=== PATIENT | female | born 1990 | race American Indian/Alaskan Native ===

== ENCOUNTER 2017-04-22 02:33 | Inpatient (IN) | payer MEDICAID ==
[2017-04-22] MEDS ORDERED: fentaNYL 100 MCG/2 ML SDV IVPUSH ONE (03:06)
[2017-04-22] MEDS ORDERED: Sodium Chloride 0.9% 1,000 ML IV ONE (03:08)
[2017-04-22] MEDS ORDERED: Lactated Ringers 1,000 ML IV ONE (03:08)
[2017-04-22] MEDS ORDERED: Naloxone 0.4 MG/ML SDV ONE (03:20)
[2017-04-22] MEDS ORDERED: Lidocaine 1% 50 ML MDV ONE (03:20)
[2017-04-22] MEDS ORDERED: Lidocaine 1% 50 ML MDV INJECT ONE (03:50)
[2017-04-22] MEDS ORDERED: Ibuprofen 800 MG Tab PO PRN (04:05)
[2017-04-22] MEDS ORDERED: Ibuprofen 800 MG Tab ONE (04:09)
--- NOTE | 2017-04-22 04:23 | PCM.LDHP ---
L&D History of Present Illness - General Date of Service: 04/22/17 (labor) Admit Problem/Dx: Admission Diagnosis/Problem Admission Diagnosis/Problem Source of Information: Patient History Limitations: Reports: No Limitations - History of Present Illness Introduction:: Alee was seen in clinic yesterday and had hypertension, lab negative and 24 hour urine was started was dilated to 2 cm. Alee slept last evening awake around 0030 and at 0045 her water broke. They stayed home until at 0330 when she presented to the hospital in active labor. She was dilated to 6 cm and wanted an epidural. Anesthesia and myself were called. We both arrived at 0320. She wanted to push at that time and was complete. No epidural was given and we proceed to delivery. Timing/Duration: Reports: minutes: (3) Location, : Reports: Abdomen Quality: Reports: Pressure Severity: Severe Pain Score: 10 Improves with: Reports: None Worsens with: Reports: None - Related Data Allergies/Adverse Reactions: Allergies Allergy/AdvReac Type Severity Reaction Status Date / Time No Known Allergies Allergy Verified 02/15/17 14:56 Home Medications: Home Meds Cephalexin 500 mg PO BID 02/15/17 [History] Past Medical History Cardiovascular History: Reports: Hypertension (diagnosed 04/21/17) [employer] History: Reports: - Infectious Disease History Infectious Disease History: Reports: Chicken Pox H&P Review of Systems - Review of Systems: Review Of Systems: See Below General: Reports: No Symptoms HEENT: Reports: No Symptoms Pulmonary: Reports: No Symptoms Cardiovascular: Reports: No Symptoms Gastrointestinal: Reports: No Symptoms Genitourinary: Reports: No Symptoms Musculoskeletal: Reports: No Symptoms Skin: Reports: No Symptoms Psychiatric: Reports: No Symptoms Neurological: Reports: No Symptoms Hematologic/Lymphatic: Reports: No Symptoms Immunologic: Reports: No Symptoms L&D Exam - Exam Exam: See Below - OB Specific Fundal Height In cm: 38 Contraction Intensity: Strong Movement: Active Heart Tones: Present Heart Tones per Min: 140 Heart Rate (FHR) Variability: Moderate (6-25 bmp) Presentation: Vertex Estimated Weight: 7-8 pounds - Coreas Score Coreas Score Cervix Position: Anterior Coreas Score Consistency: Soft Coreas Score Effacement: >80% Coreas Score Dilation: > 5 cm Coreas Score Infant's Station: -1 ,0 Coreas Score Total: 12 - Exam General: Alert, Oriented HEENT: PERRLA Neck: Supple Lungs: Normal Respiratory Effort Cardiovascular: Regular Rate, Regular Rhythm GI/Abdominal Exam: Soft Rectal Exam: Normal Exam Genitourinary: Cervical dilitation, Enlarged uterus Back Exam: Full Range of Motion Extremities: Normal Inspection, Normal Range of Motion, Non-Tender, Pedal Edema Skin: Warm Neurological: Cranial Nerves Intact Psychiatric: Alert, Normal Affect, Normal Mood - Patient Data Lab Results Last 24 hrs: Laboratory Results - last 24 hr 04/22/17 04/22/17 04/22/17 Range/Units 02:40 03:06 03:07 WBC 15.3 H (4.5-11.0) K/uL RBC 4.22 (3.30-5.50) M/uL Hgb 11.4 L (12.0-15.0) g/dL Hct 35.0 L (36.0-48.0) % MCV 83 (80-98) fL MCH 27 (27-31) pg MCHC 33 (32-36) % Plt Count 255 (150-400) K/uL Urine Color Yellow Urine Appearance Cloudy Urine pH 7.0 (4.5-8.0) Ur Specific [place] 1.015 (1.008-1.030) Urine Protein Negative (NEGATIVE) mg/dL Urine Glucose (UA) Normal (NEGATIVE) mg/dL Urine Ketones Negative (NEGATIVE) mg/dL Urine Occult Blood Large (NEGATIVE) Urine Nitrite Negative (NEGATIVE) Urine Bilirubin Negative (NEGATIVE) Urine Urobilinogen Normal (NORMAL) mg/dL Ur Leukocyte Esterase Moderate (NEGATIVE) Urine RBC 0-5 (0-5) Urine WBC 5-10 H (0-5) Ur Epithelial Cells Moderate Amorphous Sediment Few Urine Bacteria Few Urine Mucus Not seen Urine Opiates Screen Negative (NEGATIVE) Ur Oxycodone Screen Negative (NEGATIVE) Urine Methadone Screen Negative (NEGATIVE) Ur Propoxyphene Screen Negative (NEGATIVE) Ur Barbiturates Screen Negative (NEGATIVE) Ur Tricyclics Screen Negative (NEGATIVE) Ur Phencyclidine Scrn Negative (NEGATIVE) Ur Amphetamine Screen Negative (NEGATIVE) U Methamphetamines Scrn Negative (NEGATIVE) Urine MDMA Screen Negative (NEGATIVE) U Benzodiazepines Scrn Negative (NEGATIVE) U Cocaine Metab Screen Negative (NEGATIVE) U Marijuana (THC) Screen Negative (NEGATIVE) Result Diagrams: 04/22/17 03:06 - Problem List (1) SNOMED Code(s): 17369443 ICD Code: Z34.90 - ENCNTR FOR SUPRVSN OF NORMAL , UNSP, UNSP TRIMESTER Status: Acute Current Visit: Yes Qualifiers: Weeks of gestation: 38 weeks Qualified Code(s): Z3A.38 - 38 weeks gestation of (2) PIH ( induced hypertension) SNOMED Code(s): 54163148 ICD Code: O13.9 - GESTATIONAL HTN W/O SIGNIFICANT PROTEINURIA, UNSP TRIMESTER Status: Acute Current Visit: No (3) Delayed delivery after SROM (spontaneous rupture of membranes) SNOMED Code(s): 70201227 ICD Code: O42.90 - LINDA ROM, 7TH0 BETW RUPT & ONST LABR, UNSP WEEKS OF GEST Status: Acute Current Visit: No (4) Active labor SNOMED Code(s): 67041692 ICD Code: [id number] - Status: Acute Current Visit: No Problem List Initiated/Reviewed/Updated: Yes Orders Last 24hrs: Active Orders 24 hr Category Date Time Status OB Check [OM.PC] Click to Edit Care 04/22/17 02:40 Ordered Ibuprofen [Motrin] Med 04/22/17 04:05 Active 800 mg PO Q8H PRN Oxytocin/Normal Saline [Pitocin in NS 20 Units/1,000 ML Med 04/22/17 03:15 Active ] 20 unit in 1,000 ml IV TITRATE Epidural Catheter Management [OM.PC] Routine Oth 04/22/17 03:08 Ordered Medication Orders Oxytocin/Sodium Chloride (Pitocin In Ns 20 Units/1,000 Ml) 20 unit in 1,000 mls @ 999 mls/hr IV TITRATE ALEKSANDER PRN Reason: Protocol Last Admin: 04/22/17 03:53 Dose: 999 mls/hr, 999 mls/hr Ibuprofen (Motrin) 800 mg PO Q8H PRN PRN Reason: Pain Assessment/Plan Comment:: 03/22/18 A 27 year old presented in active labor after SROM at home at 0045 with clear fluid. Progressed quickly and plan for delivery Epidural requested Labs: ABO A pos GBS negative HIV neg Rubella immune
[2017-04-22] MEDS ORDERED: Sodium Chloride 0.9% 10 ML Syringe FLUSH PRN (04:29)
[2017-04-22] MEDS ORDERED: Benzocaine 20% Top Spray 56 GM Bottle TOP PRN (04:34)
[2017-04-22] MEDS ORDERED: Acetaminophen 325 MG Tab PO PRN (04:34)
[2017-04-22] MEDS ORDERED: Witch Hazel Medicated Pads 100/Jar TOP PRN (04:34)
[2017-04-22] MEDS ORDERED: Lanolin 100% Cream 40 GM Tube TOP PRN (04:34)
--- NOTE | 2017-04-22 04:50 | PCM.DEL ---
L & D Note - General Info Date of Service: 04/22/17 (delivery) Mother's Due Date: 05/02/17 - Delivery Note Labor: Spontaneous Delivery Outcome: Livebirth Infant Delivery Method: Spontaneous Vaginal Delivery-Single Infant Delivery Mode: Spontaneous Presentation: Left Occiput Anterior (GAGE) Nuchal Cord: Present Anesthesia Type: Local Anesthetic: Lidocaine (Xylocaine) 1% Plain Local Anesthetic Volume: 3cc Amniotic Fluid Description: Clear Episiotomy Type: None Laceration: 1st Degree, Perineal Suture type: Chromic Suture size: 3-0 Placenta: Intact, Spontaneous Cord: 3 Vessels Estimated Blood Loss: 100 Resuscitation Needed: No [place]: Bulb Syringe, Stimulated, Warmed, [place] Used Provider: Perlita Mello Score 1 min: 8 Score 5 min: 9 Second Stage Interventions: Reports: Second Nurse Reviewed Heart Tones, Encouragement Given, Pushing Effectively, Pushing, Stirrups/Leg Supports Delivery Comments (Free Text/Narrative):: 04/22/17 This 27 year old G2 Now P2 who is 38 3/7 weeks delivered via at 0340 in [place] a viable male infant. Nuchal body cord three vessel cord. Baby was delivered on to mother's abdomen where he was dried and stimulated. he cried spontaneously. Agpar 8,9. Placenta was expressed spontaneously intact. A small perineal flap laceration on the right side was found and repaired with 3 -0 vircyl. One % lidocaine was used as a local agent. No other lacerations were found of the cervix, rectum, or vagina. EBL 100cc Mother and baby to post and nursery in stable condition. weight 7-11 first stage 3134-2078 second stage 4165-6051 third stage 1314-7074 - General Info Date of Service: 04/22/17 Admission Dx/Problem (Free Text): Admission Diagnosis/Problem Admission Diagnosis/Problem Functional Status: Reports: Pain Controlled - Review of Systems General: Reports: No Symptoms HEENT: Reports: No Symptoms Pulmonary: Reports: No Symptoms Cardiovascular: Reports: No Symptoms Gastrointestinal: Reports: No Symptoms Genitourinary: Reports: No Symptoms Musculoskeletal: Reports: No Symptoms Skin: Reports: No Symptoms Neurological: Reports: No Symptoms Psychiatric: Reports: No Symptoms - Patient Data Vitals - Most Recent: Last Vital Signs Temp Pulse 75 04/22/17 04:15 Resp 20 04/22/17 04:15 BP 147/91 H 04/22/17 04:15 Pulse Ox Weight - Most Recent: 234 lb Lab Results Last 24 Hours: Laboratory Results - last 24 hr 04/22/17 04/22/17 04/22/17 Range/Units 02:40 03:06 03:07 WBC 15.3 H (4.5-11.0) K/uL RBC 4.22 (3.30-5.50) M/uL Hgb 11.4 L (12.0-15.0) g/dL Hct 35.0 L (36.0-48.0) % MCV 83 (80-98) fL MCH 27 (27-31) pg MCHC 33 (32-36) % Plt Count 255 (150-400) K/uL Urine Color Yellow Urine Appearance Cloudy Urine pH 7.0 (4.5-8.0) Ur Specific [place] 1.015 (1.008-1.030) Urine Protein Negative (NEGATIVE) mg/dL Urine Glucose (UA) Normal (NEGATIVE) mg/dL Urine Ketones Negative (NEGATIVE) mg/dL Urine Occult Blood Large (NEGATIVE) Urine Nitrite Negative (NEGATIVE) Urine Bilirubin Negative (NEGATIVE) Urine Urobilinogen Normal (NORMAL) mg/dL Ur Leukocyte Esterase Moderate (NEGATIVE) Urine RBC 0-5 (0-5) Urine WBC 5-10 H (0-5) Ur Epithelial Cells Moderate Amorphous Sediment Few Urine Bacteria Few Urine Mucus Not seen Urine Opiates Screen Negative (NEGATIVE) Ur Oxycodone Screen Negative (NEGATIVE) Urine Methadone Screen Negative (NEGATIVE) Ur Propoxyphene Screen Negative (NEGATIVE) Ur Barbiturates Screen Negative (NEGATIVE) Ur Tricyclics Screen Negative (NEGATIVE) Ur Phencyclidine Scrn Negative (NEGATIVE) Ur Amphetamine Screen Negative (NEGATIVE) U Methamphetamines Scrn Negative (NEGATIVE) Urine MDMA Screen Negative (NEGATIVE) U Benzodiazepines Scrn Negative (NEGATIVE) U Cocaine Metab Screen Negative (NEGATIVE) U Marijuana (THC) Screen Negative (NEGATIVE) Med Orders - Current: Current Medications Acetaminophen (Tylenol) 650 mg PO Q4H PRN PRN Reason: mild pain or fever Benzocaine (Kpru-Y-Taqcmyr 20% [place]) 0 gm TOP Q4H PRN PRN Reason: Perineal Comfort Measure Emollient Ointment (Lansinoh Hpa) 1 gm TOP ASDIRECTED PRN PRN Reason: Sore Nipples Oxytocin/Sodium Chloride (Pitocin In Ns 20 Units/1,000 Ml) 20 unit in 1,000 mls @ 999 mls/hr IV TITRATE ALEKSANDER PRN Reason: Protocol Last Admin: 04/22/17 03:53 Dose: 999 mls/hr, 999 mls/hr Oxytocin/Sodium Chloride (Pitocin In Ns 20 Units/1,000 Ml) 20 unit in 1,000 mls @ 999 mls/hr IV ONETIME ONE PRN Reason: Protocol Stop: 04/22/17 05:33 Ibuprofen (Motrin) 800 mg PO Q8H PRN PRN Reason: Pain Sodium Chloride (Saline Flush) 10 ml FLUSH ASDIRECTED PRN PRN Reason: Keep Vein Open Witch Noreen (Tucks) 1 pad TOP ASDIRECTED PRN PRN Reason: Hemorrhoids Discontinued Medications Fentanyl (Sublimaze) 100 mcg IVPUSH ONETIME ONE Stop: 04/22/17 03:07 Last Admin: 04/22/17 03:10 Dose: 100 mcg Lactated Ringer's (Ringers, Lactated) 1,000 mls @ 999 mls/hr IV .BOLUS ONE Stop: 04/22/17 04:08 Last Admin: 04/22/17 03:54 Dose: Not Given Sodium Chloride (Normal Saline) 1,000 mls @ 999 mls/hr IV ONETIME ONE Stop: 04/22/17 04:08 Last Admin: 04/22/17 03:54 Dose: 999 mls/hr Ibuprofen (Motrin) Confirm Administered Dose 800 mg .ROUTE .STK-MED ONE Stop: 04/22/17 04:10 Lidocaine HCl (Xylocaine 1%) Confirm Administered Dose 100 ml .ROUTE .STK-MED ONE Stop: 04/22/17 03:21 Last Admin: 04/22/17 03:53 Dose: 3 ml Naloxone HCl (Narcan) Confirm Administered Dose 0.4 mg .ROUTE .STK-MED ONE Stop: 04/22/17 03:21 Last Admin: 04/22/17 03:54 Dose: Not Given - Exam General: Alert, Oriented HEENT: Pupils Equal Neck: Supple Lungs: Normal Respiratory Effort Cardiovascular: Regular Rate, Regular Rhythm GI/Abdominal Exam: Soft (Female) Exam: Cervical Dilatation, Enlarged Uterus, Vaginal Bleeding Back Exam: Normal Inspection Extremities: Normal Inspection, Pedal Edema Skin: Warm, Dry Neurological: No New Focal Deficit Psy/Mental Status: Alert, Normal Affect, Normal Mood - Problem List & Annotations (1) SNOMED Code(s): 40318731 Code(s): Z34.90 - ENCNTR FOR SUPRVSN OF NORMAL , UNSP, UNSP TRIMESTER Status: Acute Current Visit: Yes Qualifiers: Weeks of gestation: 38 weeks Qualified Code(s): Z3A.38 - 38 weeks gestation of (2) PIH ( induced hypertension) SNOMED Code(s): 04867429 Code(s): O13.9 - GESTATIONAL HTN W/O SIGNIFICANT PROTEINURIA, UNSP TRIMESTER Status: Acute Current Visit: No (3) Delayed delivery after SROM (spontaneous rupture of membranes) SNOMED Code(s): 77970253 Code(s): O42.90 - LINDA ROM, 7TH0 BETW RUPT & ONST LABR, UNSP WEEKS OF GEST Status: Acute Current Visit: No (4) Active labor SNOMED Code(s): 16944274 Code(s): WJD8319 - Status: Acute Current Visit: No (5) Normal labor and delivery SNOMED Code(s): 62139449 Code(s): O80 - ENCOUNTER FOR FULL-TERM UNCOMPLICATED DELIVERY Status: Acute Current Visit: No (6) Normal (single liveborn) SNOMED Code(s): 67131260 Code(s): Z38.2 - SINGLE LIVEBORN , UNSPECIFIED TO PLACE OF Status: Acute Current Visit: No - Problem List Review Problem List Initiated/Reviewed/Updated: Yes - My Orders Last 24 Hours: My Active Orders 04/22/17 02:40 OB Check [OM.PC] Click to Edit 04/22/17 03:08 Epidural Catheter Management [OM.PC] Routine 04/22/17 03:15 Oxytocin/Normal Saline [Pitocin in NS 20 Units/1,000 ML] 20 unit in 1,000 ml IV TITRATE 04/22/17 04:05 Ibuprofen [Motrin] 800 mg PO Q8H PRN 04/22/17 04:29 Notify Provider Vital Signs [RC] PRN Up ad Annette [RC] ASDIRECTED Sodium Chloride 0.9% [Saline Flush] 10 ml FLUSH ASDIRECTED PRN DVT/VTE Prophylaxis Reflex [OM.PC] Routine Resuscitation Status Routine 04/22/17 04:30 Communication Order [RC] ASDIRECTED Heart Tones [RC] PER UNIT ROUTINE Notify Provider [RC] PRN Vital Signs [RC] PER UNIT ROUTINE Saline Lock Insert [OM.PC] Routine 04/22/17 04:32 Antiembolic Devices [RC] .Routine VTE/DVT Education [RC] Click to Edit 04/22/17 04:33 Oxytocin/Normal Saline [Pitocin in NS 20 Units/1,000 ML] 20 unit in 1,000 ml IV ONETIME 04/22/17 04:34 Patient Status [ADT] Routine Vital Signs [RC] PFP Acetaminophen [Tylenol] 650 mg PO Q4H PRN Benzocaine [Ssla-A-Jojntfq 20% [place]] See Dose Instructions TOP Q4H PRN Lanolin [Lansinoh HPA] 1 gm TOP ASDIRECTED PRN Witch Noreen [Tucks] 1 pad TOP ASDIRECTED PRN Assess Lochia [WOMSER] Per Unit Routine Assess Uterine Involution [WOMSER] Per Unit Routine 04/22/17 04:35 Ice Therapy [OM.PC] Per Unit Routine Perineal Care [OM.PC] Per Unit Routine Peripheral IV Discontinue [OM.PC] Routine Sitz Bath [OM.PC] Per Unit Routine 04/22/17 05:11 CBC WITH AUTO DIFF [HEME] AM 04/22/17 Breakfast Regular Diet [DIET] - Assessment Assessment:: 04-22-17 This 27 year old G2 now P2 who is 38 3/7 delivered without complications normal male Small perineal tear repaired induced hypertension - Plan Plan:: 04/22/17 A 27 year old presented in active labor after SROM at home at 0045 with clear fluid. Progressed quickly and plan for delivery Epidural requested Labs: ABO A pos GBS negative HIV neg Rubella immune 04-22-17 routine care HGB in am first one was 11.4 support 24-48 hour stay.
[2017-04-22] MEDS: Acetaminophen 325 MG Tab, 50 Tab Bulk Bottle PO PRN (11:33)
[2017-04-22] MEDS ORDERED: Ibuprofen 200 MG Tab, 24 Tab Bulk Bottle PO PRN (13:00)
--- NOTE | 2017-04-23 11:57 | PCM.PNPP ---
- General Info Date of Service: 04/23/17 (PPD 1) Admission Dx/Problem (Free Text): Admission Diagnosis/Problem Admission Diagnosis/Problem Functional Status: Reports: Pain Controlled - Review of Systems General: Reports: No Symptoms HEENT: Reports: No Symptoms Pulmonary: Reports: No Symptoms Cardiovascular: Reports: No Symptoms Gastrointestinal: Reports: No Symptoms Genitourinary: Reports: No Symptoms Musculoskeletal: Reports: No Symptoms Skin: Reports: No Symptoms Neurological: Reports: No Symptoms Psychiatric: Reports: No Symptoms - Patient Data Vital Signs - Most Recent: Last Vital Signs Temp 97.6 F 04/23/17 03:06 Pulse 87 04/23/17 03:06 Resp 16 04/23/17 03:06 BP 113/51 L 04/23/17 03:06 Pulse Ox 98 04/23/17 03:06 Weight - Most Recent: 234 lb I&O - Last 24 Hours: Intake & Output 04/22/17 04/23/17 04/23/17 22:59 06:59 14:59 Intake Total 720 940 Balance 720 940 Med Orders - Current: Current Medications Acetaminophen (Tylenol Bulk Bottle) 325 - 650 mg PO Q4H PRN PRN Reason: Pain Last Admin: 04/22/17 11:33 Dose: 2 tab Benzocaine (Leqa-K-Utzzkem 20% [place]) 0 gm TOP Q4H PRN PRN Reason: Perineal Comfort Measure Last Admin: 04/22/17 05:10 Dose: 1 spray Emollient Ointment (Lansinoh Hpa) 0 gm TOP ASDIRECTED PRN PRN Reason: Sore Nipples Oxytocin/Sodium Chloride (Pitocin In Ns 20 Units/1,000 Ml) 20 unit in 1,000 mls @ 999 mls/hr IV TITRATE ALEKSANDER PRN Reason: Protocol Last Admin: 04/22/17 03:53 Dose: 999 mls/hr, 999 mls/hr Ibuprofen (Motrin Bulk Bottle) 600 mg PO Q6H PRN PRN Reason: Pain Sodium Chloride (Saline Flush) 10 ml FLUSH ASDIRECTED PRN PRN Reason: Keep Vein Open Witch Noreen (Tucks) 1 pad TOP ASDIRECTED PRN PRN Reason: Hemorrhoids Last Admin: 04/22/17 05:10 Dose: 1 disk Discontinued Medications Fentanyl (Sublimaze) 100 mcg IVPUSH ONETIME ONE Stop: 04/22/17 03:07 Last Admin: 04/22/17 03:10 Dose: 100 mcg Lactated Ringer's (Ringers, Lactated) 1,000 mls @ 999 mls/hr IV .BOLUS ONE Stop: 04/22/17 04:08 Last Admin: 04/22/17 03:54 Dose: Not Given Sodium Chloride (Normal Saline) 1,000 mls @ 999 mls/hr IV ONETIME ONE Stop: 04/22/17 04:08 Last Admin: 04/22/17 03:54 Dose: 999 mls/hr Oxytocin/Sodium Chloride (Pitocin In Ns 20 Units/1,000 Ml) 20 unit in 1,000 mls @ 999 mls/hr IV ONETIME ONE PRN Reason: Protocol Stop: 04/22/17 05:33 Last Admin: 04/22/17 05:10 Dose: Not Given Ibuprofen (Motrin) 800 mg PO Q8H PRN PRN Reason: Pain Last Admin: 04/22/17 05:09 Dose: 800 mg Ibuprofen (Motrin) Confirm Administered Dose 800 mg .ROUTE .STK-MED ONE Stop: 04/22/17 04:10 Last Admin: 04/22/17 04:10 Dose: 800 mg Lidocaine HCl (Xylocaine 1%) Confirm Administered Dose 100 ml .ROUTE .STK-MED ONE Stop: 04/22/17 03:21 Last Admin: 04/22/17 03:53 Dose: 3 ml Lidocaine HCl (Xylocaine 1%) 100 ml INJECT ONETIME ONE Stop: 04/22/17 03:51 Last Admin: 04/22/17 05:11 Dose: Not Given Naloxone HCl (Narcan) Confirm Administered Dose 0.4 mg .ROUTE .STK-MED ONE Stop: 04/22/17 03:21 Last Admin: 04/22/17 03:54 Dose: Not Given - Interaction Disposition, : in Room with Family Interaction: Holding Infant Infant Feeding: Continues to Breastfeed, Difficulty with Latch-on, Encouraged to Breastfeed Support Person: Significant Other - Recovery Exam Fundal Tone: Firms with Massage Fundal Level: 1 Fingerbreadths Below Umbilicus Fundal Placement: Midline Lochia Amount: Small Lochia Color: Rubra/Red Perineum Description: Intact, Minimal Bruising/Swelling Episiotomy/Laceration: Approximated Bladder Status: Voiding Urinary Elimination: Voided Other Urinary Elimination, : Reports she needs to void. - Exam General: Alert, Oriented HEENT: Pupils Equal Neck: Supple Lungs: Clear to Auscultation, Normal Respiratory Effort Cardiovascular: Regular Rate, Regular Rhythm GI/Abdominal Exam: Normal Bowel Sounds, Soft, Non-Tender, No Organomegaly, No Distention, No Abnormal Bruit, No Mass, Pelvis Stable Extremities: Normal Inspection, Normal Range of Motion, Non-Tender, No Pedal Edema, Normal Capillary Refill Skin: Warm, Dry, Intact Wound/Incisions: Healing Well Neurological: No New Focal Deficit Psy/Mental Status: Alert, Normal Affect, Normal Mood - Problem List & Annotations (1) SNOMED Code(s): 32497312 Code(s): Z34.90 - ENCNTR FOR SUPRVSN OF NORMAL , UNSP, UNSP TRIMESTER Status: Acute Current Visit: Yes Qualifiers: Weeks of gestation: 38 weeks Qualified Code(s): Z3A.38 - 38 weeks gestation of (2) PIH ( induced hypertension) SNOMED Code(s): 37105998 Code(s): O13.9 - GESTATIONAL HTN W/O SIGNIFICANT PROTEINURIA, UNSP TRIMESTER Status: Acute Current Visit: No (3) Delayed delivery after SROM (spontaneous rupture of membranes) SNOMED Code(s): 31632742 Code(s): O42.90 - LINDA ROM, 7TH0 BETW RUPT & ONST LABR, UNSP WEEKS OF GEST Status: Acute Current Visit: No (4) Active labor SNOMED Code(s): 60506920 Code(s): JSP4482 - Status: Acute Current Visit: No (5) Normal labor and delivery SNOMED Code(s): 65712171 Code(s): O80 - ENCOUNTER FOR FULL-TERM UNCOMPLICATED DELIVERY Status: Acute Current Visit: No (6) Normal (single liveborn) SNOMED Code(s): 22855603 Code(s): Z38.2 - SINGLE LIVEBORN , UNSPECIFIED TO PLACE OF Status: Acute Current Visit: No - Problem List Review Problem List Initiated/Reviewed/Updated: Yes - My Orders Last 24 Hours: My Active Orders 04/22/17 11:18 Acetaminophen [Tylenol Bulk Bottle] 325 - 650 mg PO Q4H PRN 04/22/17 13:00 Ibuprofen [Motrin Bulk Bottle] 600 mg PO Q6H PRN - Assessment Assessment:: 04-22-17 This 27 year old G2 now P2 who is 38 3/7 delivered without complications normal male infant Small perineal tear repaired induced hypertension 04/23/17 Doing well mood good, bleeding light, HGb 102 going better, needs encouragement Blood pressure better - Plan Plan:: 04/22/17 A 27 year old presented in active labor after SROM at home at 0045 with clear fluid. Progressed quickly and plan for delivery Epidural requested Labs: ABO A pos GBS negative HIV neg Rubella immune 04-22-17 routine care HGB in am first one was 11.4 support 24-48 hour stay. 04/23/17 Home tomorrow Needs support and help with
[2017-04-24] MEDS: Acetaminophen 325 MG Tab, 50 Tab Bulk Bottle PO PRN (07:03)
--- NOTE | 2017-04-24 08:29 | PCM.PNPP ---
- General Info Date of Service: 04/24/17 Functional Status: Reports: Pain Controlled - Review of Systems General: Reports: No Symptoms HEENT: Reports: No Symptoms Pulmonary: Reports: No Symptoms Cardiovascular: Reports: No Symptoms Gastrointestinal: Reports: No Symptoms Genitourinary: Reports: No Symptoms Musculoskeletal: Reports: No Symptoms Skin: Reports: No Symptoms Neurological: Reports: No Symptoms Psychiatric: Reports: No Symptoms - General Info Date of Service: 04/24/17 - Patient Data Vital Signs - Most Recent: Last Vital Signs Temp 37.1 C 04/24/17 08:14 Pulse 57 L 04/24/17 08:14 Resp 14 04/24/17 08:14 BP 122/77 04/24/17 08:14 Pulse Ox 93 L 04/24/17 08:14 Weight - Most Recent: 106.141 kg I&O - Last 24 Hours: Intake & Output 04/23/17 04/24/17 04/24/17 22:59 06:59 14:59 Intake Total 1040 700 Balance 1040 700 Med Orders - Current: Current Medications Acetaminophen (Tylenol Bulk Bottle) 325 - 650 mg PO Q4H PRN PRN Reason: Pain Last Admin: 04/24/17 07:03 Dose: 1 tab Benzocaine (Srlg-N-Doxtrqt 20% [place]) 0 gm TOP Q4H PRN PRN Reason: Perineal Comfort Measure Last Admin: 04/22/17 05:10 Dose: 1 spray Emollient Ointment (Lansinoh Hpa) 0 gm TOP ASDIRECTED PRN PRN Reason: Sore Nipples Last Admin: 04/23/17 14:32 Dose: 1 applic Oxytocin/Sodium Chloride (Pitocin In Ns 20 Units/1,000 Ml) 20 unit in 1,000 mls @ 999 mls/hr IV TITRATE ALEKSANDER PRN Reason: Protocol Last Admin: 04/22/17 03:53 Dose: 999 mls/hr, 999 mls/hr Ibuprofen (Motrin Bulk Bottle) 600 mg PO Q6H PRN PRN Reason: Pain Last Admin: 04/24/17 07:04 Dose: 1 bottle Sodium Chloride (Saline Flush) 10 ml FLUSH ASDIRECTED PRN PRN Reason: Keep Vein Open Witch Noreen (Tucks) 1 pad TOP ASDIRECTED PRN PRN Reason: Hemorrhoids Last Admin: 04/22/17 05:10 Dose: 1 disk Discontinued Medications Fentanyl (Sublimaze) 100 mcg IVPUSH ONETIME ONE Stop: 04/22/17 03:07 Last Admin: 04/22/17 03:10 Dose: 100 mcg Lactated Ringer's (Ringers, Lactated) 1,000 mls @ 999 mls/hr IV .BOLUS ONE Stop: 04/22/17 04:08 Last Admin: 04/22/17 03:54 Dose: Not Given Sodium Chloride (Normal Saline) 1,000 mls @ 999 mls/hr IV ONETIME ONE Stop: 04/22/17 04:08 Last Admin: 04/22/17 03:54 Dose: 999 mls/hr Oxytocin/Sodium Chloride (Pitocin In Ns 20 Units/1,000 Ml) 20 unit in 1,000 mls @ 999 mls/hr IV ONETIME ONE PRN Reason: Protocol Stop: 04/22/17 05:33 Last Admin: 04/22/17 05:10 Dose: Not Given Ibuprofen (Motrin) 800 mg PO Q8H PRN PRN Reason: Pain Last Admin: 04/22/17 05:09 Dose: 800 mg Ibuprofen (Motrin) Confirm Administered Dose 800 mg .ROUTE .STK-MED ONE Stop: 04/22/17 04:10 Last Admin: 04/22/17 04:10 Dose: 800 mg Lidocaine HCl (Xylocaine 1%) Confirm Administered Dose 100 ml .ROUTE .STK-MED ONE Stop: 04/22/17 03:21 Last Admin: 04/22/17 03:53 Dose: 3 ml Lidocaine HCl (Xylocaine 1%) 100 ml INJECT ONETIME ONE Stop: 04/22/17 03:51 Last Admin: 04/22/17 05:11 Dose: Not Given Naloxone HCl (Narcan) Confirm Administered Dose 0.4 mg .ROUTE .STK-MED ONE Stop: 04/22/17 03:21 Last Admin: 04/22/17 03:54 Dose: Not Given - Interaction Disposition, : [place] in Room with Family Infant Interaction: Holding Feeding: Continues to Breastfeed, Difficulty with Latch-on, Encouraged to Breastfeed Support Person: Significant Other - Recovery Exam Fundal Tone: Firm Fundal Level: At Umbilicus Fundal Placement: Midline Lochia Amount: Small Lochia Color: Rubra/Red Perineum Description: Intact, Minimal Bruising/Swelling Episiotomy/Laceration: Approximated Bladder Status: Voiding Urinary Elimination: Voided Other Urinary Elimination, : Reports she needs to void. - Exam General: Alert, Oriented HEENT: Pupils Equal Neck: Supple Lungs: Clear to Auscultation, Normal Respiratory Effort Cardiovascular: Regular Rate, Regular Rhythm GI/Abdominal Exam: Normal Bowel Sounds, Soft, Non-Tender, No Organomegaly, No Distention, No Abnormal Bruit, No Mass, Pelvis Stable Extremities: Normal Inspection, Normal Range of Motion, Non-Tender, No Pedal Edema, Normal Capillary Refill Skin: Warm, Dry, Intact Neurological: No New Focal Deficit Psy/Mental Status: Alert, Normal Affect, Normal Mood - Problem List & Annotations (1) Normal vaginal delivery SNOMED Code(s): 92757709 Code(s): O80 - ENCOUNTER FOR FULL-TERM UNCOMPLICATED DELIVERY Status: Acute Current Visit: Yes (2) (infant) SNOMED Code(s): 133856388 Code(s): Z78.9 - OTHER SPECIFIED HEALTH STATUS Status: Acute Current Visit: Yes - Problem List Review Problem List Initiated/Reviewed/Updated: Yes - Assessment Assessment:: 04-22-17 This 27 year old G2 now P2 who is 38 3/7 delivered without complications normal male Small perineal tear repaired induced hypertension 04/23/17 Doing well mood good, bleeding light, HGb 102 going better, needs encouragement Blood pressure better 04/24/2017 day two Fundus firm and bleeding decreasing better Blood pressure stable - Plan Plan:: 04/22/17 A 27 year old presented in active labor after SROM at home at 0045 with clear fluid. Progressed quickly and plan for delivery Epidural requested Labs: ABO A pos GBS negative HIV neg Rubella immune 04-22-17 routine care HGB in am first one was 11.4 support 24-48 hour stay. 04/23/17 Home tomorrow Needs support and help with 04/24/2017 Continue Routine Cares Continue to support and encourage To see Wanda in 6 weeks for visit
== END 2017-04-24 12:41 | disposition home or self-care (01) | DRG 775 ==
LOC: JP.OBCHECK 02:33 → JP.OB 03:05 → OBSVTOIN 03:40 → JP.OB 03:40 → JP.MS 05:23
PROVIDERS: ADMIT Nurse Practitioner Family; ATTEND Nurse Practitioner Family
PROC: 10E0XZZ Delivery of Products of Conception, External Approach (ICD-10-PCS; principal; 2017-04-22)
PROC: 0HQ9XZZ Repair Perineum Skin, External Approach (ICD-10-PCS; 2017-04-22)
DX: O13.4 Gestational [pregnancy-induced] hypertension without significant proteinuria, complicating childbirth (principal); O70.0 First degree perineal laceration during delivery; Z3A.38 38 weeks gestation of pregnancy; Z37.0 Single live birth; O42.90 Premature rupture of membranes, unspecified as to length of time between rupture and onset of labor, unspecified weeks of gestation
CPT/HCPCS: 36415; 59409; 80305; 81001; 85025; 85027; 99211; A9270-GY; J2590; J3010; J7030

== ENCOUNTER 2022-08-09 19:19 | Emergency (ER) | payer MEDICAID ==
[2022-08-09] MEDS ORDERED: Ketorolac 30 MG/ML SDV IM ONE (20:12)
[2022-08-09] MEDS ORDERED: Bacitracin Oint 1 GM U/D Packet TOP ONE (20:53)
== END 2022-08-09 21:34 | disposition home or self-care (01) ==
LOC: JP.ED 19:19
DX: S91.331A Puncture wound without foreign body, right foot, initial encounter (principal); I10 Essential (primary) hypertension; Z79.899 Other long term (current) drug therapy; W45.8XXA Other foreign body or object entering through skin, initial encounter
CPT/HCPCS: 73630-26-RT; 73630-RT; 96372; 99283; J1885

== ENCOUNTER 2024-02-10 17:02 | Emergency (ER) | payer MEDICAID ==
[2024-02-10 17:45] LABS: BASOPHILS ABSOLUTE AUTO 0.01 K/uL (0.00-0.10); BASOPHILS PERCENT AUTO 0.2 % (0.1-1.3); HEMATOCRIT 39.6 % (34.3-46.0); HEMOGLOBIN 13.9 g/dL (11.2-15.5); IMMATURE GRAN ABSOLUTE AUTO 0.02 K/uL (0.00-0.23); IMMATURE GRAN PERCENT AUTO 0.4 % (0.0-0.7); LYMPHOCYTES ABSOLUTE AUTO 0.54 K/uL (0.8-3.3); LYMPHOCYTES PERCENT AUTO 11.1 % (11.4-47.7); MEAN CORPUSCULAR HEMOGLOBIN 29.3 pg (31.6-35.5); MEAN CORPUSCULAR HGB CONC 35.1 g/dL (31.6-35.5); MEAN CORPUSCULAR VOLUME 83.5 fL (81.4-99.0); MONOCYTES ABSOLUTE AUTO 0.27 K/uL (0.20-0.90); MONOCYTES PERCENT AUTO 5.6 % (3.3-12.6); NEUTROPHILS ABSOLUTE AUTO 4.02 K/uL (1.0-7.6); NEUTROPHILS PERCENT AUTO 82.7 % (40.0-78.1); PLATELET COUNT,PLT 108 K/uL (130-375); RED BLOOD CELL COUNT 4.74 M/uL (3.77-5.24); WHITE BLOOD CELL COUNT,WBC 4.9 K/uL (3.2-11.0)
[2024-02-10] MEDS: Doxycycline 100 MG in Sodium Chloride 0.9% 100 ML IV ONE (18:03)
[2024-02-10] MEDS: Sodium Chloride 0.9% 500 ML IV ONE ×2 (18:03→19:08)
[2024-02-10 18:06] LABS: A/G RATIO 0.8 (1.2-2.2); ALANINE AMINOTRANSFERASE,ALT 126 U/L (12-78); ALBUMIN 3.3 g/dL (3.4-5.0); ALKALINE PHOSPHATASE 238 U/L (46-116); ANION GAP 18.2 mmol/L (5.0-14.0); ASPARTATE AMNIOTRANSFERASE,AST 127 U/L (15-37); BILIRUBIN TOTAL 1.1 mg/dL (0.2-1.0); BLOOD UREA NITROGEN,BUN 13 mg/dL (7-18); C-REACTIVE PROTEIN 21.88 mg/dL (<0.50); CARBON DIOXIDE,CO2 21 mmol/L (21-32); CHLORIDE,CL 98 mmol/L (100-108); CREATININE 1.1 mg/dL (0.6-1.0); EST CRCL DRUG DOSING (CG) 60.74 mL/min; ESTIMATED GFR 68 mL/min (>60); GLUCOSE RANDOM 173 mg/dL (74-106); POTASSIUM,K 3.2 mmol/L (3.6-5.2); PROTEIN TOTAL,TP 7.5 g/dL (6.4-8.2); SODIUM,NA 134 mmol/L (140-148)
[2024-02-10 18:09] LABS: LACTIC ACID 1.9 mmol/L (0.4-2.0)
[2024-02-10 18:32] LABS: LYME AB IgG Negative (Negative); LYME AB IgM Equivocal (Negative)
[2024-02-10] MEDS: Sodium Chloride 0.9% 10 ML Syringe FLUSH PRN (19:08)
[2024-02-14 12:10] LABS: ANAPLASMA PHAGOCYTOPHILUM PCR Detected; BABESIA MICROTI BY PCR Not Detected; BABESIA SPECIES BY PCR Not Detected; EHRLICHIA CHAFFEENSIS BY PCR Not Detected; EHRLICHIA EWINGII/CANIS BY PCR Not Detected; EHRLICHIA MURIS-LIKE BY PCR Not Detected
[2024-02-14 14:29] LABS: B. BURGDORFERI IGG IMMUNOBLOT Negative (Negative); B. BURGDORFERI IGM IMMUNOBLOT Negative (Negative)
== END 2024-02-10 19:49 | disposition home or self-care (01) ==
LOC: JP.ED 17:02
DX: A93.8 Other specified arthropod-borne viral fevers (principal); D69.6 Thrombocytopenia, unspecified
CPT/HCPCS: 36415; 80053; 83605; 84145; 85025; 86140; 86617; 86618; 87040; 87468; 87469; 87484; 87798; 96360; 96361; 99283; 99284; J3490; J7040